=== PATIENT | male | born 1975 | race Caucasian/White ===

== ENCOUNTER 2017-03-08 14:37 | Emergency (ER) | payer BC ==
[2017-03-08 14:45] VITALS: BP 132/75
[2017-03-08] MEDS ORDERED: Lidocaine 1% 50 ML MDV INJECT ONE (15:07)
--- NOTE | 2017-03-08 15:20 | EDM.PDOC ---
ED HPI GENERAL MEDICAL PROBLEM - General Chief Complaint: Upper Extremity Injury/Pain Stated Complaint: LEFT THUMB LAC Time Seen by Provider: 03/08/17 15:07 Source of Information: Reports: Patient History Limitations: Reports: No Limitations - History of Present Illness INITIAL COMMENTS - FREE TEXT/NARRATIVE: 41-year-old male presents for evaluation treatment of a laceration to the left thumb. Patient reports that he was at work. Reports that he was cutting something with exacto knife when the exacto knife slipped and cut his left dorsal lateral thumb. Reports that it bled initially. No numbness, tingling or decreased range of motion to the left hand. Patient reports that tetanus is up-to-date. Unsure of exact date but states it has been within the last 10 years. Patient is right-handed. Onset: Today Location: Reports: Upper Extremity, Left Left 1-Thumb Pain Score (Numeric/FACES): 1 - Related Data Allergies Allergy/AdvReac Type Severity Reaction Status Date / Time No Known Allergies Allergy Verified 03/08/17 14:42 Home Meds: Home Meds . [No Known Home Meds] 03/08/17 [History] Past Medical History - Past Health History Medical/Surgical History: Denies Medical/Surgical History Social & Family History - Family History Family Medical History: Noncontributory - Tobacco Use Smoking Status *Q: Never Smoker Second Hand Smoke Exposure: No - Caffeine Use Caffeine Use: Reports: Coffee - Recreational Drug Use Recreational Drug Use: No Drug Use in Last 12 Months: Yes Recreational Drug Type: Reports: Marijuana/Hashish Recreational Drug Use Frequency: Socially Review of Systems - Review of Systems Review Of Systems: See Below Musculoskeletal: Reports: Hand Pain (left thumb), Other (no decreased ROM) Skin: Reports: Wound (left thumb) Neurological: Denies: Numbness, Tingling ED EXAM, GENERAL - Physical Exam Exam: See Below Exam Limited By: No Limitations General Appearance: Alert, WD/WN, No Apparent Distress Respiratory/Chest: No Respiratory Distress Cardiovascular: Normal Peripheral Pulses, Regular Rate, Rhythm Peripheral Pulses: 3+: Radial (L), Radial (R) Extremities: Normal Inspection, Normal Range of Motion (patient is able to make a fist, oppose fingers to thumb, flex and extend thumb and adduct and abduct thumb), Normal Capillary Refill, Other (1.5cm laceration to the left dorsla thumb just proximal to the MCP joint) Neurological: Alert, Oriented, Normal Cognition Psychiatric: Normal Affect, Normal Mood Skin Exam: Warm, Dry, Normal Color ED TRAUMA EXTREMITY PROCEDURES - Laceration/Wound Repair Left Dorsal Hand Lac/Wound Length In cm: 1.5 Appearance: Subcutaneous, Linear, Clean Anesthetic Type: Local Local Anesthesia - Lidocaine (Xylocaine): 1% Plain Local Anesthetic Volume: 3cc Skin Prep: Chlorhexidine (Hibiciens), Saline, Sterile Drape Exploration/Debridement/Repair: Wound Explored, No Foreign Material Found Closed With: Sutures Suture Size: 4-0 # of Sutures: 4 Suture Type: Nylon, Interrupted, Simple Sterile Dressing Applied: Nurse Tetanus Status Addressed: Yes Complications: No - Foreign Body Removal Indication:: left dorsal forearm plant nancy Consent Obtained: Patient Performing Doctor:: [facility] Other Location Comment:: left dorsal forearm Anesthesia Type: None (declined) Findings:: approximately 0.5cm plant nancy Complications:: No Course - Vital Signs Last Recorded V/S: Last Vital Signs Temp 36.9 C 03/08/17 14:42 Pulse 88 03/08/17 14:42 Resp 18 03/08/17 14:42 BP 132/75 03/08/17 14:42 Pulse Ox 100 03/08/17 14:42 - Orders/Labs/Meds Meds: Medications Discontinued Medications Generic Name Dose Route Start Last Admin Trade Name Manju PRN Reason Stop Dose Admin Lidocaine HCl 50 ml 03/08/17 15:07 03/08/17 15:17 Xylocaine 1% INJECT 03/08/17 15:08 50 ml ONETIME ONE Administration - Re-Assessments/Exams Free Text/Narrative Re-Assessment/Exam: 03/08/17 15:50 4 sutures were placed to the wound on the left thumb. Patient tolerated the procedure well. There no complications. He reports that his tetanus is up-to- date. After I completed the suturing the patient asked me to look at a spot on his left mid forearm. Reports that he believes he has a plant nancy stuck in his arm. He is tempted to get it out but was unsuccessful. I Was able to remove the nancy without problem. He declined any anesthesia. He was instructed to monitor this area as well for signs of increased swelling, pus or redness. Discharge instructions as documented. Departure - Departure Time of Disposition: :54 Disposition: Home, Self-Care 01 Condition: Good Clinical Impression: Laceration - Discharge Information Instructions: Laceration Care, Adult, [id number] Referrals: PCP,Urban [Primary Care Provider] - Ines Ritter PA [Physician Appliance Service Representative] - Forms: ED Department Discharge Additional Instructions: Wash the laceration with gentle soap and water twice a day. Antibacterial ointment such as Neosporin or bacitracin to the wound twice a day. Keep the wound covered. Have the sutures removed in 10 days. The [facility] clinic located on the [facility] is open 8am to 5 PM Tuesday through Tuesday and will remove the sutures for free. Call [phone] to schedule the provider there. Recommend Ines Ritter. Monitor the wounds for signs of infection such as increased swelling, pus or redness. Present to the clinic or the ER should these develop. Wash the puncture wound with gentle soap and water twice a day. Antibacterial ointment to the puncture wound twice a day. Please return to the ER if your symptoms change or worsen.
== END 2017-03-08 16:02 | disposition home or self-care (01) ==
LOC: JD.ED 14:37
DX: S61.012A Laceration without foreign body of left thumb without damage to nail, initial encounter (principal); W26.0XXA Contact with knife, initial encounter; Y99.0 Civilian activity done for income or pay
CPT/HCPCS: 12001; 99283-25